=== PATIENT | female | born 1955 | race Caucasian/White ===

== ENCOUNTER 2017-01-09 10:43 | Emergency (ER) | payer OTHER ==
[~2017-01-09] VITALS: Ht 162.6 cm; Wt 84.5 kg
[~2017-01-09 10:43] MED LIST: IBUP-1542 PO; IBUP200C11 PO; LORA10TA3 PO; OMEP20CA16 PO
[2017-01-09 10:58] VITALS: Ht 162.6 cm; Wt 84.5 kg
[2017-01-09] MEDS ORDERED: SOD CHLORIDE 0.9% 1,000 ML IV STA (11:17)
[2017-01-09 11:45] LABS: ADD SCAN DIFF NO
[2017-01-09] MEDS ORDERED: FOLI-49 PO (11:47)
[2017-01-09] MEDS ORDERED: ERGO500037 PO (11:47)
[2017-01-09] MEDS ORDERED: LISI10TA2 PO (11:47)
[2017-01-09 11:51] LABS: ABNORMAL IP MESSAGE 1; BASOPHILS % 0.1 % (0.0-2.0); EOSINOPHILS # 0.1 10^3/ul (0.0-0.5); EOSINOPHILS % 0.4 % (0.0-7.0); HEMATOCRIT 30.7 % (37.0-47.0); HEMOGLOBIN 8.8 g/dl (12.0-16.0); LYMPHOCYTES # 1.9 10^3/ul (0.8-2.9); LYMPHOCYTES % 14.5 % (15.0-51.0); MEAN CORPUSCULAR HEMOGLOBIN 20.7 pg (29.0-33.0); MEAN CORPUSCULAR HGB CONC 28.7 g/dl (32.0-37.0); MEAN CORPUSCULAR VOLUME 72.2 fl (82.0-101.0); MEAN PLATELET VOLUME 10.8 fl (7.4-10.4); MONOCYTE # 0.8 10^3/ul (0.3-0.9); MONOCYTES % 6.4 % (0.0-11.0); NEUTROPHILS % 78.2 % (39.0-77.0); PLATELET COUNT 384 10^3/UL (140-415); RED BLOOD COUNT 4.25 10^6/ul (4.20-5.40); RED CELL DISTRIBUTION WIDTH 17.1 % (11.5-14.5); WHITE BLOOD COUNT 12.7 10^3/ul (4.8-10.8)
[2017-01-09 11:59] LABS: ALBUMIN 4.4 g/dl (3.3-4.9); CHLORIDE 105 mmol/L (97-110); POTASSIUM 3.8 mmol/L (3.5-5.1); SODIUM 145 mmol/L (135-144)
[2017-01-09 12:01] LABS: ALBUMIN/GLOBULIN RATIO 1.18; ANION GAP 17 (8-16)
[2017-01-09 12:04] LABS: ALANINE AMINOTRANSFERASE 38 IU/L (13-69); ALKALINE PHOSPHATASE 98 IU/L (42-121); ASPARTATE AMINO TRANSFERASE 28 IU/L (15-46); BILIRUBIN,INDIRECT 0.2 mg/dl (0-1.1); BILIRUBIN,TOTAL 0.2 mg/dl (0.2-1.3); BLOOD UREA NITROGEN 14 mg/dl (7-20); CALCIUM 9.3 mg/dl (8.4-10.2); CARBON DIOXIDE 27 mmol/L (21-31); CREATININE 0.81 mg/dl (0.44-1.00); GLUCOSE 103 mg/dl (70-220); INR 0.98; TOTAL PROTEIN 8.1 g/dl (6.1-8.1)
[2017-01-09 12:05] LABS: PARTIAL THROMBOPLASTIN TIME 26.4 Sec (25.0-35.0)
[2017-01-09 12:16] LABS: TROPONIN-I < 0.012 ng/ml (0.00-0.12)
--- NOTE | 2017-01-09 12:54 | ERD ---
ER Documentation Chief Complaint Date/Time DATE: 01/09/17 TIME: 12:53 Chief Complaint REFERRED TO ED BY PCP DUE TO LOW HEMOGLOBIN 7.3 HPI This is a 61-year-old female presents to the emergency room after she had lab work done which showed a low hemoglobin. Morning to patient her blood count was 7.3. She does state that she was mildly weak and was recently started on iron for anemia. She denies any vaginal bleeding, blood in stool, or vomiting. ROS All systems reviewed and are negative except as per history of present illness. Medications Home Meds Reported Medications Ergocalciferol (Vitamin D2) (VITAMIN D2) 50,000 Unit Capsule, [address]06 UNIT PO EVERY 7 DAYS, CAP 01/09/17 Folic Acid* (Folic Acid*) 1 Mg Tablet, 1 MG PO DAILY, TAB 01/09/17 Lisinopril* (Lisinopril*) 10 Mg Tablet, 10 MG PO DAILY, #30 TAB 01/09/17 Omeprazole* (Omeprazole*) 20 Mg Capsule.dr, 20 MG PO BID, CAP 12/01/14 Discontinued Reported Medications Loratadine* (Loratadine*) 10 Mg Tablet, 10 MG PO DAILY, TAB 12/01/14 Ibuprofen* (Advil*) 200 Mg Capsule, 200 MG PO Q6H Y for PAIN, CAP 12/01/14 Ibuprofen* (Ibuprofen*) 600 Mg Tablet, 600 MG PO Q6H Y for MILD PAIN LEVEL 1-3, TAB 12/01/14 Allergies Allergies: Coded Allergies: No Known Allergy (Unverified , 01/09/17) PMhx/Soc History of Surgery: Yes () Anesthesia Reaction: No Hx Neurological Disorder: No Hx Respiratory Disorders: No Hx Cardiac Disorders: Yes (HTN, HYPERLIPIDEMIA) Hx Psychiatric Problems: No Hx Miscellaneous Medical Probl: No Hx Alcohol Use: No Hx Substance Use: No Hx Tobacco Use: No Smoking Status: Never smoker Physical Exam Vitals Vital Signs Date Time Temp Pulse Resp B/P Pulse Ox O2 Delivery O2 Flow Rate FiO2 01/09/17 11:37 Nasal Cannula 2 01/09/17 10:58 99.4 95 20 179/70 99 Physical Exam INITIAL VITAL SIGNS: Reviewed by me GENERAL: The patient is well developed and appropriate for usual state of health in no apparent distress HEENT: Pupils equal, round, and reactive to light. EOMI. There is no scleral icterus. NECK: C-spine is soft and supple, there is no meningismus. There is no cervical lymphadenopathy. LUNGS: Clear to auscultation bilaterally. There are no rales, wheezes or rhonchi. HEART: Regular rate and rhythm, no murmurs, clicks, rubs or gallops. ABDOMEN: Soft, non-tender, non-distended. There are bowel sounds in all four quadrants. No rebound or guarding. EXTREMITIES: There is no peripheral cyanosis or edema. No focal swelling or erythema. NEUROLOGICAL: The patient moves all four extremities with 5/5 strength. Cranial nerves II - XII are intact. Normal gait. Alert and oriented SKIN: There is no apparent rash or petechiae. HEME/LYMPHATIC: There is no evidence of excessive bruising or lymphedema. PSYCHIATRIC: The patient does not appear anxious or depressed. Result Diagram: 01/09/17 1130 01/09/17 1130 Results 24 hrs Laboratory Tests Test 01/09/17 11:30 Activated Partial Thromboplast Time 26.4Sec Alanine Aminotransferase (ALT/SGPT) 38IU/L Albumin 4.4g/dl Albumin/Globulin Ratio 1.18 Alkaline Phosphatase 98IU/L Anion Gap 17 Aspartate Amino Transf (AST/SGOT) 28IU/L Basophils # 0.010^3/ul Basophils % 0.1% Blood Urea Nitrogen 14mg/dl Calcium Level 9.3mg/dl Carbon Dioxide Level 27mmol/L Chloride Level 105mmol/L Creatinine 0.81mg/dl Direct Bilirubin 0.00mg/dl Eosinophils # 0.110^3/ul Eosinophils % 0.4% Globulin 3.70g/dl Glucose Level 103mg/dl Hematocrit 30.7% Hemoglobin 8.8g/dl INR International Normalized Ratio 0.98 Indirect Bilirubin 0.2mg/dl Lymphocytes # 1.910^3/ul Lymphocytes % 14.5% Mean Corpuscular Hemoglobin 20.7pg Mean Corpuscular Hemoglobin Concent 28.7g/dl Mean Corpuscular Volume 72.2fl Mean Platelet Volume 10.8fl Monocytes # 0.810^3/ul Monocytes % 6.4% Neutrophils # 10.010^3/ul Neutrophils % 78.2% Nucleated Red Blood Cells # 0.010^3/ul Nucleated Red Blood Cells % 0.0/100WBC Platelet Count 43721^3/UL Potassium Level 3.8mmol/L Prothrombin Time 13.0Sec Prothrombin Time Ratio 1.0 Red Blood Count 4.2510^6/ul Red Cell Distribution Width 17.1% Sodium Level 145mmol/L Total Bilirubin 0.2mg/dl Total Protein 8.1g/dl Troponin I < 0.012ng/ml White Blood Count 12.710^3/ul Current Medications Medications (Trade) Dose Ordered Sig/Isidro Route PRN Reason Start Time Stop Time Status Last Admin Dose Admin Sodium Chloride (NS) 1,000 ml @ 1,000 mls/hr Q1H STAT IV 01/09/17 11:17 01/09/17 12:16 DC 01/09/17 11:36 Procedures/MDM EKG: Rate/Rhythm: [Normal Sinus Rhythm with PVCs] QRS, ST, T-waves: [No changes consistent w/ acute ischemia] Impression: [No evidence of ischemia or arrhythmia] This 61-year-old female presents to the emergency room for evaluation of low hemoglobin. This patient states that she was mildly weak. Lab work was drawn here in the emergency room which does show a hemoglobin of 8.8. This patient is no acute distress, hemodynamically stable, and is on iron supplementation. There is no need for transfusion at this time and this patient will be discharged with instructions to follow-up with her primary care physician. Departure Diagnosis: Primary Impression: Microcytic anemia Additional Impression: Encounter for laboratory test Condition: Stable CE RACHEL DO Jan 09, 2017 12:54
[2017-01-09 13:03] VITALS: BP 168/70; PULSE 78; RESP 20; TEMP 98.5
== END 2017-01-09 13:16 | disposition home or self-care (01) ==
LOC: E/R 10:43
DX: D50.9 Iron deficiency anemia, unspecified (principal); I10 Essential (primary) hypertension
CPT/HCPCS: 36415; 80053; 84484; 85025; 85610; 85730; 86850; 86900; 86901; J7030; Z7502; 93005